=== PATIENT | female | born 1960 | race Caucasian/White ===

== ENCOUNTER 2019-02-05 22:47 | Emergency (ER) | payer OTHER ==
[~2019-02-05] VITALS: Ht 152.4 cm; Wt 39.9 kg
--- NOTE | ~2019-02-05 | EKG ---
[place], [place] ELECTROCARDIOGRAM REPORT NAME: TISH SWANN UNIT #: [id number] ROOM: DOCTOR: EPIPHANY DRAFT REPORT BIRTHDATE: [birth year] [facility] Test Date: 2019-02-05 Test Time: 22:53:32 Pat Name: TISH SWANN Department: ER Room: Gender: F Er Medical Technician: Nivia Edward : 1960 Requested By: MARY VOSS Order Number: [id number] Reading MD: Ty Delgado MD Measurements Intervals [place] Rate: 64 P: 76 WY: 159 QRS: 52 QRSD: 99 T: 60 QT: 446 QTc: 461 Interpretive Statements Sinus rhythm Left atrial enlargement Anteroseptal infarct, age indeterminate Compared to ECG 09/27/2018 15:02:42 Myocardial infarct finding now present Electronically Signed On 02-07-2019 8:12:25 PDT by Ty Delgado MD CM:EKGRPT:ELECTROCARDIOGRAM REPORT [id number] MARY VOSS MD EPIPHANY DRAFT REPORT MARY VOSS MD
[~2019-02-05 22:47] MED LIST: 'CYPROHEPTADINE4 MG; ALORA0.1 MG/24; ATROVENT H0.017 MG/A IH; ATROVENT H0.017 MG/A INH; ATROVENT0.018 MG/A IH; CLONAZEPAM2 M1 PO; CLONAZEPAM2 MG PO; CYPROHEPTADINE4 MG PO; DOXYCYCLINE MO100 M1 PO; ESTRADIOL1 MG PO; FLAGYL500 M1 IV; FLAGYL500 MG PO; FLOVENT 220 M220 MCG INH; FLOVENT DI250 MCG/Ac IH; FOLIC ACID1 MG; FOLIC ACID1 MG PO; Flovent 220 M220 MCG INH; KLONOPIN2 M1 PO; LOMOTIL 0.025 M1 TAB PO; MARINOL5 MG PO; MIRTAZAPINE15 M2 PO; NATURE'S BLEND F1 MG PO; NOT SURE OF MEDS; OMEPRAZOLE DR20 M1 PO; OMEPRAZOLE1 POW; OMEPRAZOLE20 MG PO; OXYCODONE AND A1 TA6 PO; OXYCODONE HCL30 MG PO; OXYCODONE/ACETA1 TA1 PO; OXYCODONE/ACETA1 TAB PO; OXYCODONE30 MG; OXYCODONE30 MG PO; PERCOCET 325 MG1 TA2; PERCOCET 325 MG1 TA5 PO; PERCOCET 325 MG1 TA7 PO; PERCOCET 5-3251 EACH PO; PERIACTIN4 MG PO; PREDNISONE10 MG PO; PROTONIX40 MG PO; REMERON15 M1; REMERON15 MG PO; ROBAXIN750 MG PO; SEROQUEL XR150 MG PO; SINGULAIR10 M1 PO; SINGULAIR10 MG PO; STROMECTOL PO; VANCOCIN250 MG PO; VIBRAMYCIN100 MG PO; VICODIN 5/500 505 MG PO; VITAMIN D; VITAMIN D50000 I1; VITAMIN D50000 I3 PO; ZESTRIL10 MG PO; ZITHROMAX250 MG PO; ZOFRAN4 MG PO; Zofran4 MG PO; [UNRECOGNIZED DRUG - SUPPLY]; [UNRECOGNIZED DRUG - SUPPLY]
[2019-02-05 23:20] LABS: BASO # 0.1 10*3/uL (0.0-0.1); BASO % 0.8 % (0.0-1.0); EOS % 0.2 % (1.0-4.0); HEMATOCRIT 38.9 % (37.0-47.0); HEMOGLOBIN 13.1 g/dl (12.0-16.0); LYMPH # 2.1 10*3/uL (1.3-4.4); LYMPH % 23.3 % (27.0-41.0); MEAN CELL VOLUME 103.2 fl (81.0-99.0); MEAN CORPUSCULAR HGB 34.7 pg (27.0-31.0); MEAN CORPUSCULAR HGB CONC 33.7 g/dl (33.0-37.0); MEAN PLATELET VOLUME 10.1 fl (9.6-12.3); MONO # 0.5 10*3/uL (0.1-1.0); MONO % 5.8 % (3.0-9.0); NEUT # 6.1 10*3/uL (2.3-7.9); NEUT % 69.7 % (47.0-73.0); PLATELET COUNT AUTOMATED 361 10*3/uL (130-400); RED BLOOD COUNT 3.77 10*6/uL (4.10-5.10); RED CELL DISTRI WIDTH 15.8 % (0-14.5); WHITE BLOOD COUNT 8.8 10*3/uL (4.8-10.8)
[2019-02-05 23:37] LABS: ALBUMIN 3.6 gm/dl (3.1-4.5); ALKALINE PHOSPHATASE 84 U/L (45-117); BUN 5 mg/dl (7-24); CHLORIDE 105 mmol/L (98-107); CREATININE 0.75 mg/dL (0.55-1.02); POTASSIUM 3.7 mmol/L (3.5-5.1); SGOT/AST 12 IU/L (3-35); SGPT/ALT 12 U/L (12-78); SODIUM 138 mmol/L (136-145); TOTAL PROTEIN 7.9 gm/dL (6.4-8.2)
[2019-02-05 23:48] VITALS: BP 130/50
[2019-02-05 23:52] LABS: TROPONIN I < 0.015 ng/ml (<0.045)
[2019-02-06] MEDS ORDERED: CLINDAMYCIN150 MG PO (01:14)
[2019-02-06] MEDS ORDERED: LIDODERM1 EACH TD (01:14)
== END 2019-02-06 01:54 | disposition home or self-care (01) ==
LOC: ED 22:47
PROVIDERS: Emergency Medicine Emergency Medical Services
DX: S29.011A Strain of muscle and tendon of front wall of thorax, initial encounter (principal); J44.9 Chronic obstructive pulmonary disease, unspecified; I10 Essential (primary) hypertension; R35.0 Frequency of micturition; R53.1 Weakness; R61 Generalized hyperhidrosis; R10.9 Unspecified abdominal pain; F17.200 Nicotine dependence, unspecified, uncomplicated; Z79.899 Other long term (current) drug therapy; Z88.0 Allergy status to penicillin; Z88.1 Allergy status to other antibiotic agents; Z88.6 Allergy status to analgesic agent; Z88.8 Allergy status to other drugs, medicaments and biological substances; Z91.018 Allergy to other foods; Z91.041 Radiographic dye allergy status; Z85.028 Personal history of other malignant neoplasm of stomach

== ENCOUNTER 2019-05-15 15:55 | Emergency (ER) | payer OTHER ==
[~2019-05-15] VITALS: Ht 154.9 cm; Wt 45.4 kg
[~2019-05-15 15:55] MED LIST changes: +CLINDAMYCIN150 MG PO; +LIDODERM1 EACH TD
[2019-05-15 16:00] VITALS: BP 135/104
== END 2019-05-15 18:24 | disposition home or self-care (01) ==
LOC: ED 15:55
DX: C34.90 Malignant neoplasm of unspecified part of unspecified bronchus or lung (principal); R07.89 Other chest pain; M54.6 Pain in thoracic spine; I10 Essential (primary) hypertension; F17.200 Nicotine dependence, unspecified, uncomplicated; J44.9 Chronic obstructive pulmonary disease, unspecified; Z79.899 Other long term (current) drug therapy; Z88.6 Allergy status to analgesic agent; Z88.0 Allergy status to penicillin; Z91.040 Latex allergy status; Z88.8 Allergy status to other drugs, medicaments and biological substances; Z91.041 Radiographic dye allergy status; Z88.1 Allergy status to other antibiotic agents

== ENCOUNTER → 2019-06-26 | Outpatient (CLI) | payer OTHER ==
[~2019-06-26] MED LIST changes: +LEVAQUIN500 M2 PO; +MUCINEX1200 M1 PO; +PERCOCET 7.5-31 EACH PO
== END | disposition home or self-care (01) ==
LOC: LAB 18:06
DX: R05 Cough (principal)

== ENCOUNTER 2019-07-03 12:34 | Inpatient (IN) | payer OTHER ==
[~2019-07-03] VITALS: Ht 152.4 cm; Wt 39.9 kg
[2019-07-03] VITALS (9 sets, daily range): BP systolic 100–135; BP diastolic 59–82
[~2019-07-03 12:34] MED LIST changes: -LEVAQUIN500 M2 PO; -MUCINEX1200 M1 PO; -PERCOCET 7.5-31 EACH PO
[2019-07-03 13:12] LABS: ACT PARTIAL THROMBO TIME 28.1 SECONDS (20.0-32.1)
[2019-07-03 13:18] LABS: ALBUMIN 3.1 gm/dl (3.1-4.5); ALKALINE PHOSPHATASE 92 U/L (45-117); BUN 11 mg/dl (7-24); CHLORIDE 99 mmol/L (98-107); SGOT/AST 4 IU/L (3-35); SGPT/ALT 10 U/L (12-78); SODIUM 133 mmol/L (136-145); TOTAL PROTEIN 7.6 gm/dL (6.4-8.2)
[2019-07-03 13:19] LABS: BASO # 0.1 10*3/uL (0.0-0.1); BASO % 0.3 % (0.0-1.0); HEMATOCRIT 43.4 % (37.0-47.0); HEMOGLOBIN 14.2 g/dl (12.0-16.0); LYMPH # 1.3 10*3/uL (1.3-4.4); MEAN CELL VOLUME 103.1 fl (81.0-99.0); MEAN CORPUSCULAR HGB 33.7 pg (27.0-31.0); MEAN CORPUSCULAR HGB CONC 32.7 g/dl (33.0-37.0); MEAN PLATELET VOLUME 9.4 fl (9.6-12.3); MONO # 0.3 10*3/uL (0.1-1.0); MONO % 1.7 % (3.0-9.0); NEUT # 12.7 10*3/uL (2.3-7.9); NEUT % 88.3 % (47.0-73.0); PLATELET COUNT AUTOMATED 558 10*3/uL (130-400); RED BLOOD COUNT 4.21 10*6/uL (4.10-5.10); RED CELL DISTRI WIDTH 14.6 % (0-14.5); WHITE BLOOD COUNT 14.4 10*3/uL (4.8-10.8)
[2019-07-03 13:27] LABS: TROPONIN I < 0.015 ng/ml (<0.045)
[2019-07-03] MEDS ORDERED: PERCOCET 7.5-31 EACH PO (16:07)
--- NOTE | 2019-07-03 16:23 | NUR ---
[facility] , under the services of PRAKASH Cadena DO with a diagnosis of PNUEMONIA. Chief complaint is SOB, PAIN. Patient arrived via bed from ER. Monitor applied. Initial assessment completed. Vital signs taken and recorded. PRAKASH CADENA DO notified of admission to the unit. Orders received. See assessment for past medical history, medications and allergies. Patient and/or family oriented to unit. [facility] visitation policy reviewed. Clothing/patient valuable form completed. VIVI GALLARDO
--- NOTE | 2019-07-03 16:32 | NUR ---
DR. VENEGAS NOTIFIED OF CONSULT.
--- NOTE | 2019-07-03 16:40 | NUR ---
PERCOCET GIVEN FOR C/O GENERALIZED PAIN. WILL MONITOR.
--- NOTE | 2019-07-03 17:50 | NUR ---
PEROCET HELPING, NOT FULLY EFFECTIVE AT THIS TIME.
--- NOTE | 2019-07-03 19:45 | NUR ---
PATIENT MEDICATED PER PATIENT REQUEST AND PRN ORDER WITH 30 MG OXY IR PER PRN ORDER FOR C/O STERNAL PAIN. RATED PAIN A 8-9/10 WITH 10 BEING THE WORST. SEE EMAR. REINFORCED USE OF CALL LIGHT.
--- NOTE | 2019-07-03 21:00 | NUR ---
MEDICATION GIVEN EARLIER HELPED A LITTLE TAKING THE EDGE OFF HER PAIN.. REINFORCED USE OF CALL LIGHT
[2019-07-04] VITALS: BP 94/55
--- NOTE | 2019-07-04 00:05 | NUR ---
24 HR chart check completed.
--- NOTE | 2019-07-04 05:35 | NUR ---
PATIENT MEDICATED WITH OXYCODONE 30 PER PRN ORDER FOR C/O BACK PAIN. RATED PAIN A 7-8/10 WITH 10 BEING THE WORST. SEE EMAR. REINFORCED USE OF CALL LIGHT.
--- NOTE | 2019-07-04 06:22 | NUR ---
Faxed palliative care order to [facility] and notified [facility] nurse, Fadumo.
--- NOTE | 2019-07-04 06:44 | NUR ---
MEDICATION GIVEN EARLIER APPEARS TO BE EFFECTINE. PATIENT SLEEPING.
[2019-07-04 06:45] LABS: BASO % 0.2 % (0.0-1.0); HEMATOCRIT 40.3 % (37.0-47.0); HEMOGLOBIN 13.2 g/dl (12.0-16.0); LYMPH # 2.8 10*3/uL (1.3-4.4); MEAN CELL VOLUME 105.2 fl (81.0-99.0); MEAN CORPUSCULAR HGB 34.5 pg (27.0-31.0); MEAN CORPUSCULAR HGB CONC 32.8 g/dl (33.0-37.0); MEAN PLATELET VOLUME 9.6 fl (9.6-12.3); MONO # 0.6 10*3/uL (0.1-1.0); NEUT # 15.1 10*3/uL (2.3-7.9); NEUT % 80.6 % (47.0-73.0); PLATELET COUNT AUTOMATED 530 10*3/uL (130-400); RED BLOOD COUNT 3.83 10*6/uL (4.10-5.10); RED CELL DISTRI WIDTH 14.6 % (0-14.5); WHITE BLOOD COUNT 18.8 10*3/uL (4.8-10.8)
[2019-07-04 07:01] LABS: BUN 14 mg/dl (7-24); CHLORIDE 100 mmol/L (98-107); CHOLESTEROL 149 mg/dL (<200); CREATININE 0.77 mg/dL (0.55-1.02); HDL CHOLESTEROL 54 mg/dl (40-60); LDL CHOLESTEROL 75 mg/dL (9-159); POTASSIUM 3.9 mmol/L (3.5-5.1); SODIUM 137 mmol/L (136-145); TRIGLYCERIDES 101 mg/dl (<150); VLDL CHOLESTEROL 20 mg/dL (6-40)
[2019-07-04 07:02] LABS: ACT PARTIAL THROMBO TIME 28.1 SECONDS (20.0-32.1)
[2019-07-04 07:07] LABS: FREE T4 1.29 ng/dl (0.76-1.46); THYROID STIM HORMONE (HS) 0.192 uIU/ml (0.358-4.75)
[2019-07-04 08:00] VITALS: BP 96/64
--- NOTE | 2019-07-04 08:27 | NUR ---
PT WAS INSTRUCTED ON FLUTTER. PT TOLERATED WELL. PT CAN DO ON HER OWN
[2019-07-04 08:53] LABS: VITAMIN D, 25-HYDROXY 96.5 ng/mL (30-100)
--- NOTE | 2019-07-04 10:28 | NUR ---
PT REFUSES LOVENOX INJECTION AND STATES THAT SHE IS A "BLEEDER". PT LABS REVIEWED WITH PT AND PT GIVEN PLATELET COUNT. PT CONTINUES TO REFUSE LOVENOX AT THIS TIME. PT EDUCATED ON IMPORTANCE OF MED. WILL NOTIFY HOSPITALIST.
--- NOTE | 2019-07-04 10:42 | NUR ---
PHYSICAL THERAPY Physical therapy evaluation attempted, patient refused. Patient stated, "There's not much you girls can do for me now, I'm done past that. I am able to get around on my own if I have something to hold on to." Discharge PT orders per patient request. Thank you, Kim Dominguez,SPT Pearl Crawford,PT,DPT
--- NOTE | 2019-07-04 10:47 | NUR ---
PT GIVEN ZOFRAN AT THIS TIME FOR C/O NAUSEA. WILL MONITOR FOR EFFECTIVENESS. CALL LIGHT IN REACH.
--- NOTE | 2019-07-04 11:47 | NUR ---
ZOFRAN EFFECTIVE PER PT.
--- NOTE | 2019-07-04 13:10 | NUR ---
PT GIVEN 30 MG OXYCODONE PER PRN ORDERS ON EMAR FOR PAIN TO CHEST AND BACK. RATES PAIN 9/10. WILL MONITOR FOR EFFECTIVENESS. PT ALERT AND ORIENTED, PLANS TO EAT LUNCH. BLOOD PRESSURE WNL. ALL SAFETY MEASURES IN PLACE. CALL LIGHT IN REACH.
[2019-07-04 13:11] VITALS: BP 100/52
--- NOTE | 2019-07-04 14:10 | NUR ---
OXYCODONE EFFECTIVE PER PT. WILL CONTINUE TO MONITOR. PT LYING IN BED. RESPIRATIONS EASY AND UNLABORED ON 2L NC. CALL LIGHT IN REACH.
--- NOTE | 2019-07-04 14:11 | NUR ---
Talent Agent in to talk to patient. Patient states lives at HOME with DAUGHTER. There are NO steps in the home. Physician: RIKY Pharmacy: [facility] Home health services: NONE Patient's level of ADLs: INDEPENDENT Patient has working utilities: YES DME: [facility], [facility] Follow-up physician's appointment after d/c: WILL BE MADE BY HOSPITALIST NURSE DIRECTOR ON DISCHARGE Does patient want to access PORTAL?: NO Discharge plan PT LIVES AT HOME WITH HER DAUGHTER. TALKED WITH HER ABOUT HOME HEALTH AND SKILLED STAY. BUT PT ADAMENTLY REFUSES AND STATES I WILL GO HOME WITH MY DAUGHTER. DOES STATE DAUGHTER IS WORKING ON GETTING HER SOME HOME HEALTH BUT SHE DOES NOT KNOW WHO IS IS THROUGH. WILL CONTINUE TO FOLLOW. WILL HAVE A RIDE PER PT. CURTIS BRADEN
--- NOTE | 2019-07-04 14:15 | NUR ---
Occupational Therapy evaluation offered and screen completed. Patient did not feel she needed OT. She does admit that she receives assist from her daughter and nursing for ADLs and mobility. She was insistant that she was NOT refusing therapy. OTR explained the process for OT evaluation but patient continued to reply that she was not refusing but she did not need any therapy. Patient was preoccupied with long story about hospice and hospice with her mother being a bad experience, which is why she did not want hospice at home. Discharge OT referral at this time. Thank you. Rossy Nelson OTR/kaleigh
[2019-07-04 16:00] VITALS: BP 90/55
[2019-07-04 20:00] VITALS: BP 98/65
[2019-07-05] VITALS: BP 97/57
--- NOTE | 2019-07-05 04:35 | NUR ---
PATIENT MEDICATED WITH OXYIR PER PRN ORDER FOR C/O BACK PAIN. RATED PAIN A 9/10 WITH 10 BEING THE WORST. SEE EMAR. REINFORCED USE OF CALL LIGHT.
[2019-07-05 07:34] LABS: BASO # 0.1 10*3/uL (0.0-0.1); BASO % 0.3 % (0.0-1.0); HEMOGLOBIN 11.8 g/dl (12.0-16.0); LYMPH % 13.4 % (27.0-41.0); MEAN CORPUSCULAR HGB 33.2 pg (27.0-31.0); MEAN CORPUSCULAR HGB CONC 31.1 g/dl (33.0-37.0); MEAN PLATELET VOLUME 9.3 fl (9.6-12.3); MONO # 1.1 10*3/uL (0.1-1.0); MONO % 4.8 % (3.0-9.0); NEUT # 18.2 10*3/uL (2.3-7.9); NEUT % 80.3 % (47.0-73.0); PLATELET COUNT AUTOMATED 453 10*3/uL (130-400); RED BLOOD COUNT 3.55 10*6/uL (4.10-5.10); RED CELL DISTRI WIDTH 14.8 % (0-14.5); WHITE BLOOD COUNT 22.6 10*3/uL (4.8-10.8)
[2019-07-05 07:44] LABS: BUN 19 mg/dl (7-24); CHLORIDE 106 mmol/L (98-107); CREATININE 0.64 mg/dL (0.55-1.02); POTASSIUM 4.7 mmol/L (3.5-5.1); SODIUM 138 mmol/L (136-145)
[2019-07-05 08:00] VITALS: BP 84/60
--- NOTE | 2019-07-05 08:00 | NUR ---
PT C/O WOUND ON COCCYX. REFUSED TO TURN FOR ME TO LOOK AT IT BECAUSE OF HER PAIN.
[2019-07-05 12:00] VITALS: BP 92/56
--- NOTE | 2019-07-05 12:48 | NUR ---
PT C/O CHEST AND BACK PAIN RAITING IT A 07/11. MEDICATED WITH PRN OXYCODONE. WILL CHECK EFFECTIVENESS. CALL LIGHT WITHIN REACH.
--- NOTE | 2019-07-05 13:30 | NUR ---
PT STATES PAIN MED WAS EFFECTIVE RATING PAIN A 7/10 NOW. WILL CONTINUE TO MONITOR. CALL LIGHT WITHIN REACH.
--- NOTE | 2019-07-05 14:39 | NUR ---
PT CONTINUES TO SAY SHE DOES NOT WANT ANY SERVICES AT HOME AT THIS TIME. WILL CONTINUE TO FOLLOW.
[2019-07-05 16:00] VITALS: BP 98/64
--- NOTE | 2019-07-05 16:02 | NUR ---
pt states coxxyx area sore, refuses to turn for area to be assessed at this time, states "maybe later tonight, when my pain is better i can turn on my side"
--- NOTE | 2019-07-05 17:32 | NUR ---
PT C/O CHEST PAIN RATING IT A 10/10. MEDICATED WITH PRN OXYCODONE. WILL CHECK EFFECTIVENESS. CALL LIGHT WITHIN REACH.
--- NOTE | 2019-07-05 18:30 | NUR ---
PT STATES PAIN MED WAS EFFECTIVE RATING PAIN A 6/10 NOW. WILL CONTINUE TO MONITOR. CALL LIGHT WITHIN REACH.
[2019-07-05 20:00] VITALS: BP 111/62
[2019-07-06] VITALS: BP 94/56
[2019-07-06 06:49] LABS: HEMATOCRIT 39.1 % (37.0-47.0); HEMOGLOBIN 12.3 g/dl (12.0-16.0); MEAN CELL VOLUME 106.3 fl (81.0-99.0); MEAN CORPUSCULAR HGB 33.4 pg (27.0-31.0); MEAN CORPUSCULAR HGB CONC 31.5 g/dl (33.0-37.0); MEAN PLATELET VOLUME 9.5 fl (9.6-12.3); PLATELET COUNT AUTOMATED 424 10*3/uL (130-400); RED BLOOD COUNT 3.68 10*6/uL (4.10-5.10); RED CELL DISTRI WIDTH 14.5 % (0-14.5)
[2019-07-06 07:10] LABS: PLATELET SUFFICIENCY HIGH (NORMAL); POLYCHROMASIA SLIGHT; TOTAL CELLS COUNTED 100 #CELLS
[2019-07-06 08:00] VITALS: BP 100/58
[2019-07-06 12:00] VITALS: BP 100/64
--- NOTE | 2019-07-06 12:35 | NUR ---
MEDICATED WITH OXY 3O MG FOR C/O PAIN CHEST AND BACK.
--- NOTE | 2019-07-06 13:30 | NUR ---
PATIENT SLEEPING PAIN MED HELPED.
--- NOTE | 2019-07-06 15:12 | NUR ---
PATIENT REQUESTS PAIN MEDICATION EVERYTIME SOMEONE IS IN ROOM. EDUCATED THAT SCHEDULED DOSE IS NOT TILL 10PM AND PRN DOSE NOT TILL 830PM. PATIENT ARGUMENATIVE AND STATES HSE KNOWS HER SCHEDULE.
[2019-07-06 16:00] VITALS: BP 104/61
--- NOTE | 2019-07-06 16:47 | NUR ---
MEDICATED WITH ZOFRAN PER ORDER AND REQUEST.
--- NOTE | 2019-07-06 17:02 | NUR ---
PATIENT MEDICATED WITH 30 MG OXY PER ORDER AND ADAMANT REQUEST.
[2019-07-06 20:00] VITALS: BP 107/67
--- NOTE | 2019-07-06 20:04 | NUR ---
1940 RESTING IN BED EATING SUPPER. SL DROWSY. NO DISTRESS NOTED. RESPIRATIONS EASY. HEP LOCK INTACT. NO C/O'S AT PRESENT.
--- NOTE | 2019-07-06 22:20 | NUR ---
PATIENT IS AAOX3, RESTING IN BED WITH EASY AND REGULAR RESPERS ON 2L O2 VIA NASAL CANNULA. ASSESSMENT IS COMPLETE WITH NO C/O OR S/S OF DISTRESS NOTED AT THIS TIME. BED IS LOW, LOCKED, AND CALL LIGHT IS WITHIN REACH. WILL CONTINUE TO MONITOR, SEE SHIFT ASSESSMENT.
[2019-07-07] VITALS: BP 97/62
[2019-07-07 06:25] LABS: HEMATOCRIT 37.6 % (37.0-47.0); HEMOGLOBIN 11.9 g/dl (12.0-16.0); MEAN CELL VOLUME 106.2 fl (81.0-99.0); MEAN CORPUSCULAR HGB 33.6 pg (27.0-31.0); MEAN CORPUSCULAR HGB CONC 31.6 g/dl (33.0-37.0); MEAN PLATELET VOLUME 9.5 fl (9.6-12.3); PLATELET COUNT AUTOMATED 388 10*3/uL (130-400); RED BLOOD COUNT 3.54 10*6/uL (4.10-5.10); RED CELL DISTRI WIDTH 14.9 % (0-14.5); WHITE BLOOD COUNT 20.4 10*3/uL (4.8-10.8)
--- NOTE | 2019-07-07 06:27 | NUR ---
24 HOUR CHART CHECK COMPLETE.
[2019-07-07 06:38] LABS: BUN 20 mg/dl (7-24); CHLORIDE 103 mmol/L (98-107); CREATININE 0.75 mg/dL (0.55-1.02); SODIUM 140 mmol/L (136-145)
[2019-07-07 06:42] LABS: POTASSIUM 3.7 mmol/L (3.5-5.1)
[2019-07-07 06:50] LABS: PLATELET SUFFICIENCY NORMAL (NORMAL); TOTAL CELLS COUNTED 100 #CELLS
[2019-07-07 06:51] LABS: STOMATOCYTE FEW
[2019-07-07 08:00] VITALS: BP 84/52
[2019-07-07 08:30] VITALS: BP 100/56
[2019-07-07] MEDS ORDERED: PREDNISONE10 MG PO (09:13)
[2019-07-07] MEDS ORDERED: MUCINEX1200 M1 PO (09:13)
[2019-07-07] MEDS ORDERED: LEVAQUIN500 M2 PO (09:13)
--- NOTE | 2019-07-07 11:50 | NUR ---
MEDICATED WITH PRN OXY 30MG FOR CHEST WALL PAIN. PATIENT IS TO BE DISCHARGED TO HOME.
--- NOTE | 2019-07-07 12:30 | NUR ---
OXY 30 EFFECTIVE.
--- NOTE | 2019-07-07 13:54 | NUR ---
PATIENT DISCHARGED TO HOME WITH DAUGHTER.
== END 2019-07-07 13:54 | disposition home or self-care (01) | DRG 139 ==
LOC: ED 12:34 → EDHOLD 14:53 → 4E 14:53
PROVIDERS: Emergency Medicine; Internal Medicine; Student in an Organized Health Care Education/Training Program; ADMIT Family Medicine
DX: J18.9 Pneumonia, unspecified organism (principal); J44.0 Chronic obstructive pulmonary disease with (acute) lower respiratory infection; C34.90 Malignant neoplasm of unspecified part of unspecified bronchus or lung; J44.1 Chronic obstructive pulmonary disease with (acute) exacerbation; I10 Essential (primary) hypertension; E87.1 Hypo-osmolality and hyponatremia; D47.3 Essential (hemorrhagic) thrombocythemia; F17.210 Nicotine dependence, cigarettes, uncomplicated; D72.9 Disorder of white blood cells, unspecified; J20.9 Acute bronchitis, unspecified; D72.829 Elevated white blood cell count, unspecified; F41.1 Generalized anxiety disorder; K21.9 Gastro-esophageal reflux disease without esophagitis; D72.810 Lymphocytopenia; R73.9 Hyperglycemia, unspecified; E83.41 Hypermagnesemia; K90.0 Celiac disease; G89.29 Other chronic pain; G35 Multiple sclerosis; C79.51 Secondary malignant neoplasm of bone; T38.0X5A Adverse effect of glucocorticoids and synthetic analogues, initial encounter; Y92.89 Other specified places as the place of occurrence of the external cause; Z88.6 Allergy status to analgesic agent; Z91.041 Radiographic dye allergy status; Z91.040 Latex allergy status; Z88.5 Allergy status to narcotic agent; Z88.0 Allergy status to penicillin; Z88.8 Allergy status to other drugs, medicaments and biological substances; Z91.018 Allergy to other foods; Z91.09 Other allergy status, other than to drugs and biological substances; Z90.49 Acquired absence of other specified parts of digestive tract; Z90.710 Acquired absence of both cervix and uterus; Z82.5 Family history of asthma and other chronic lower respiratory diseases; Z83.3 Family history of diabetes mellitus; Z80.8 Family history of malignant neoplasm of other organs or systems; Z85.028 Personal history of other malignant neoplasm of stomach; Z85.42 Personal history of malignant neoplasm of other parts of uterus; Z87.01 Personal history of pneumonia (recurrent); Z86.11 Personal history of tuberculosis; Z85.6 Personal history of leukemia; Z79.899 Other long term (current) drug therapy; Z98.1 Arthrodesis status; Z71.6 Tobacco abuse counseling

== ENCOUNTER 2019-10-09 22:44 | Emergency (ER) | payer OTHER ==
[~2019-10-09] VITALS: Ht 157.4 cm; Wt 42.2 kg
[~2019-10-09 22:44] MED LIST changes: +LEVAQUIN500 M2 PO; +MUCINEX1200 M1 PO; +PERCOCET 7.5-31 EACH PO
[2019-10-09 23:44] LABS: BASO # 0.1 10*3/uL (0.0-0.1); BASO % 0.6 % (0.0-1.0); EOS # 0.1 10*3/uL (0.0-0.4); EOS % 0.4 % (1.0-4.0); HEMATOCRIT 41.6 % (37.0-47.0); HEMOGLOBIN 13.6 g/dl (12.0-16.0); LYMPH # 3.2 10*3/uL (1.3-4.4); LYMPH % 24.8 % (27.0-41.0); MEAN CELL VOLUME 102.7 fl (81.0-99.0); MEAN CORPUSCULAR HGB 33.6 pg (27.0-31.0); MEAN CORPUSCULAR HGB CONC 32.7 g/dl (33.0-37.0); MEAN PLATELET VOLUME 9.5 fl (9.6-12.3); MONO % 7.5 % (3.0-9.0); NEUT # 8.6 10*3/uL (2.3-7.9); NEUT % 66.3 % (47.0-73.0); PLATELET COUNT AUTOMATED 477 10*3/uL (130-400); RED BLOOD COUNT 4.05 10*6/uL (4.10-5.10); RED CELL DISTRI WIDTH 16.7 % (0-14.5)
[2019-10-10 00:08] LABS: ALBUMIN 3.1 gm/dl (3.1-4.5); ALKALINE PHOSPHATASE 79 U/L (45-117); BUN 9 mg/dl (7-24); CHLORIDE 111 mmol/L (98-107); CREATININE 0.59 mg/dL (0.55-1.02); POTASSIUM 3.3 mmol/L (3.5-5.1); SGOT/AST 6 IU/L (3-35); SGPT/ALT 8 U/L (12-78); SODIUM 141 mmol/L (136-145); TOTAL PROTEIN 6.9 gm/dL (6.4-8.2)
[2019-10-10 00:14] LABS: TROPONIN I < 0.015 ng/ml (<0.045)
[2019-10-10 02:40] VITALS: BP 110/74
== END 2019-10-10 04:43 | disposition home or self-care (01) ==
LOC: ED 22:44
PROVIDERS: Emergency Medicine
DX: C79.51 Secondary malignant neoplasm of bone (principal); M54.5 Low back pain; R07.9 Chest pain, unspecified; R20.0 Anesthesia of skin; R00.0 Tachycardia, unspecified; J44.9 Chronic obstructive pulmonary disease, unspecified; I10 Essential (primary) hypertension; M19.90 Unspecified osteoarthritis, unspecified site; F17.200 Nicotine dependence, unspecified, uncomplicated; Z79.899 Other long term (current) drug therapy; Z88.0 Allergy status to penicillin; Z88.6 Allergy status to analgesic agent; Z88.1 Allergy status to other antibiotic agents; Z91.040 Latex allergy status; Z88.8 Allergy status to other drugs, medicaments and biological substances; Z91.041 Radiographic dye allergy status

== ENCOUNTER 2019-10-17 21:22 | Emergency (ER) | payer OTHER ==
[~2019-10-17] VITALS: Ht 152.4 cm; Wt 40.8 kg
[2019-10-17 21:31] VITALS: BP 124/94
[2019-10-17 22:20] LABS: BASO # 0.1 10*3/uL (0.0-0.1); BASO % 0.5 % (0.0-1.0); EOS # 0.1 10*3/uL (0.0-0.4); EOS % 0.3 % (1.0-4.0); HEMATOCRIT 40.4 % (37.0-47.0); HEMOGLOBIN 12.9 g/dl (12.0-16.0); LYMPH # 4.2 10*3/uL (1.3-4.4); LYMPH % 22.1 % (27.0-41.0); MEAN CELL VOLUME 104.7 fl (81.0-99.0); MEAN CORPUSCULAR HGB 33.4 pg (27.0-31.0); MEAN CORPUSCULAR HGB CONC 31.9 g/dl (33.0-37.0); MEAN PLATELET VOLUME 9.7 fl (9.6-12.3); MONO # 1.1 10*3/uL (0.1-1.0); MONO % 5.8 % (3.0-9.0); NEUT # 13.4 10*3/uL (2.3-7.9); NEUT % 70.9 % (47.0-73.0); PLATELET COUNT AUTOMATED 396 10*3/uL (130-400); RED BLOOD COUNT 3.86 10*6/uL (4.10-5.10); RED CELL DISTRI WIDTH 15.9 % (0-14.5); WHITE BLOOD COUNT 18.9 10*3/uL (4.8-10.8)
[2019-10-17 22:34] LABS: ALBUMIN 2.9 gm/dl (3.1-4.5); ALKALINE PHOSPHATASE 75 U/L (45-117); BUN 15 mg/dl (7-24); CHLORIDE 110 mmol/L (98-107); CREATININE 0.65 mg/dL (0.55-1.02); LIPASE 111 U/L (73-393); POTASSIUM 3.8 mmol/L (3.5-5.1); SGOT/AST 8 IU/L (3-35); SGPT/ALT 9 U/L (12-78); SODIUM 141 mmol/L (136-145); TOTAL PROTEIN 6.6 gm/dL (6.4-8.2)
[2019-10-17 23:26] LABS: BILIRUBIN NEGATIVE (NEGATIVE); BLOOD NEGATIVE (NEGATIVE); CLARITY SL CLOUDY (CLEAR); COLOR YELLOW (YELLOW); GLUCOSE NEGATIVE (NEGATIVE); KETONE NEGATIVE (NEGATIVE); LEUKO ESTERASE NEGATIVE (NEGATIVE); NITRITE NEGATIVE (NEGATIVE); SPECIFIC GRAVITY 1.025 (1.005-1.030)
[2019-10-17 23:32] LABS: BACTERIA TRACE; EPITHELIAL CELLS 25-30; RBC 0-2 rbc/hpf (0-2); WBC 0-2 wbc/hpf (0-5)
== END 2019-10-18 00:05 | disposition home or self-care (01) ==
LOC: ED 21:22
PROVIDERS: Emergency Medicine
DX: G89.3 Neoplasm related pain (acute) (chronic) (principal); C79.51 Secondary malignant neoplasm of bone; J44.9 Chronic obstructive pulmonary disease, unspecified; I10 Essential (primary) hypertension; K21.9 Gastro-esophageal reflux disease without esophagitis; Z88.6 Allergy status to analgesic agent; Z91.041 Radiographic dye allergy status; Z88.0 Allergy status to penicillin; Z88.8 Allergy status to other drugs, medicaments and biological substances; Z88.1 Allergy status to other antibiotic agents; Z91.040 Latex allergy status; Z88.5 Allergy status to narcotic agent; Z79.899 Other long term (current) drug therapy; Z79.2 Long term (current) use of antibiotics; Z87.891 Personal history of nicotine dependence